=== PATIENT | male | born 2000 | race Caucasian/White ===

== ENCOUNTER 2024-04-13 18:39 | Emergency (ER) | payer SELFPAY ==
[~2024-04-13] VITALS: Ht 166.4 cm; Wt 63.2 kg
[2024-04-13 19:07] VITALS: BP 117/71; PULSE 82; RESP 18; TEMP 98.5; O2SAT 97
[2024-04-13] MEDS ORDERED: ACYC400T14 PO (19:32)
[2024-04-13] MEDS ORDERED: POLY15SO74 RIGHT EYE (19:32)
[2024-04-13] MEDS ORDERED: PRED20TA5 PO (19:32)
[2024-04-13] MEDS ORDERED: MINE3.5O30 RIGHT EYE (19:32)
[2024-04-13 19:40] VITALS: BP 117/71; PULSE 82; RESP 18; TEMP 98.5; O2SAT 97
== END 2024-04-13 19:40 | disposition home or self-care (01) ==
LOC: MED 18:39
DX: G51.0 Bell's palsy (principal); H57.11 Ocular pain, right eye; H57.89 Other specified disorders of eye and adnexa; Z79.899 Other long term (current) drug therapy
CPT/HCPCS: 99283